=== PATIENT | female | born 1960 | race Caucasian/White ===

== ENCOUNTER 2017-06-04 19:56 | Emergency (ER) | payer OTHER ==
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
[2017-06-04 22:30] VITALS: BP 130/67
== END 2017-06-04 22:30 | disposition home or self-care (01) ==
LOC: ER 19:56
DX: R07.89 Other chest pain (principal); M25.572 Pain in left ankle and joints of left foot; V89.2XXA Person injured in unspecified motor-vehicle accident, traffic, initial encounter; F17.200 Nicotine dependence, unspecified, uncomplicated; I10 Essential (primary) hypertension; Z88.0 Allergy status to penicillin
CPT/HCPCS: 71046; 99284

== ENCOUNTER → 2017-08-04 | Outpatient (CLI) | payer OTHER ==
--- NOTE | 2017-08-04 13:45 | RADIOLOGY REPORT (SQ) ---
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 Multiplanar images include fat sensitive s equences as T1, fluid sensitive sequences as FST2/STIR, cartilage sensitive sequences as FSPD, and gr adient echo sequences. LIMITATIONS: None. FINDINGS: BONE MARROW: No alteration of signal to suggest marrow replacement or edema. No occult fra cture. No large osteophytes. Area of concern on plain radiograph is normal marrow and cortex on MRI. No marrow replacement or fracture. EFFUSIONS: Subtalar effusion. 1.7 cm ganglion cyst extends anterolateral from the subtalar joint. OSSEOUS ARTICULATIONS: Edema/reactive changes at the articulations of the seconds and 3rd proximal me tatarsals with the cuneiforms. TALAR DOME AND TIBIAL PLAFOND: Osteochondral lesion of the medial talar dome with cystic change. No focal cartilaginous loss. ACHILLES TENDON: Intact without partial or full-thickness tear. No adjacent bursal fluid or edema. TIBIALIS ANTERIOR TENDON: Intact without edema at the 1st MT attachment. TIBIALIS POSTERIOR TENDON: Normal morphology and no edema at the navicular attachment. No tendon lama th fluid. FLEXOR HALLUCIS LONGUS AND FLEXOR DIGITORUM TENDONS: Flexor hallucis longus intact. Fluid in the fle xor digitorum tendon sheath. PERONEUS LONGUS AND BREVIS TENDON: Normal morphology and no tendon sheath fluid. No subluxation. ATFL, CFL, PTFL: Chronic tear of the ATFL. The calcaneal fibular ligament and posterior talofibular ligament intact. DELTOID LIGAMENT: Visualized components intact. TARSAL TUNNEL: No masses. No muscle atrophy. SINUS TARSI: No fluid. No reactive marrow edema or erosions. PLANTAR FASCIA: No signal alteration or tear. ADJACENT SOFT TISSUES: No masses. OTHER: No other significant finding. 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 Reactive changes of the articulations of the seconds and 3rd proximal meta tarsals with the cuneiform s. Area concern in the distal fibula is normal on MRI. Chronic tear of the ATF L. TECHNICAL DOCUMENTATION: JOB ID: [id number] [employer]- All Rights Reserved Reading location - IP/workstation name: [email or web address]
== END ==
LOC: RAD 14:37
PROVIDERS: ATTEND Nurse Practitioner
DX: M93.862 Other specified osteochondropathies, left lower leg (principal); E78.5 Hyperlipidemia, unspecified